=== PATIENT | female | born 1995 | race Caucasian/White ===

== ENCOUNTER 2018-10-01 01:49 | Emergency (ER) | payer SELFPAY ==
--- NOTE | 2018-10-01 02:17 | ED ---
Neurological HPI - HPI Summary HPI Summary: Patient is a 23 y/o F presenting to ED with complaints of "seizure" that was witnessed by her friend today. She states that she was sitting in room watching TV when her eyesight suddenly became "weird". Patient reports she also felt "jittery" Patient went downstairs and states that her next memory is EMS at her place of residence. No Hx of seizures is reported. Patient is on adderall, sertraline 25 mg for anxiety and ADHD since 10th grade. She denies bladder incontinence, states she has been getting sufficient sleep recently. Marijuana usage earlier today is endorsed. On triage, pain is denied, nothing is noted to aggravate/alleviate Sx. Home medications and allergies are reviewed. - History of Current Complaint Chief Complaint: EDSeizure Stated Complaint: 2208 Time Seen by Provider: 10/01/18 02:05 Hx Obtained From: Patient Onset/Duration: Started hours ago, Resolved Timing: Intermittent Episodes Lasting: Current Severity: None - pain denied Number of Seizures: 1 Pain Intensity: 0 Pain Scale Used: 0-10 Numeric - 0/10 Character: Other: - possible seizure Syncope Context: Witnessed, At Rest - watching TV Aggravating: Nothing Alleviating: Nothing Associated Signs and Symptoms: Positive: Visual Changes - vision became "weird" , Seizure. Negative: Incontinent Bladder/Bowel - Allergy/Home Medications Allergies/Adverse Reactions: Allergies Allergy/AdvReac Type Severity Reaction Status Date / Time No Known Allergies Allergy Verified 10/01/18 02:01 Home Medications: Home Medications Adderall Xr 20 mg Capsule 10/01/18 [History Confirmed 10/01/18] Sertraline HCl 10/01/18 [History] PMH/Surg Hx/FS Hx/Imm Hx Sensory History: Denies: Hx Legally Blind, Hx Deafness Opthamlomology History: Denies: Hx Legally Blind EENT History: Denies: Hx Deafness Infectious Disease History: No Infectious Disease History: Denies: Traveled Outside the [place] in Last 30 Days - Family History Known Family History: Negative: Blood Disorder - Social History Alcohol Use: Occasionally Substance Use Type: Reports: Marijuana Smoking Status (MU): Never Smoked Tobacco Review of Systems Positive: Other - felt "jittery", no lack of sleep Positive: Other - vision became "weird" Negative: incontinence Neurological: Other - possible seizure All Other Systems Reviewed And Are Negative: Yes Physical Exam - Summary Physical Exam Summary: VITAL SIGNS: Reviewed. GENERAL: Patient is a well-developed and nourished female who is lying comfortable in the stretcher. Patient is not in any acute respiratory distress. HEAD AND FACE: No signs of trauma. No ecchymosis, hematomas or skull depressions. No sinus tenderness. EYES: PERRLA, EOMI x 2, No injected conjunctiva, no nystagmus. EARS: Hearing grossly intact. Ear canals and tympanic membranes are within normal limits. MOUTH: Oropharynx within normal limits. NECK: Supple, trachea is midline, no adenopathy, no JVD, no carotid bruit, no c- spine tenderness, neck with full ROM. CHEST: Symmetric, no tenderness at palpation LUNGS: Clear to auscultation bilaterally. No wheezing or crackles. CVS: Regular rate and rhythm, S1 and S2 present, no murmurs or gallops appreciated. ABDOMEN: Soft, non-tender. No signs of distention. No rebound no guarding, and no masses palpated. Bowel sounds are normal. EXTREMITIES: FROM in all major joints, no edema, no cyanosis or clubbing. NEURO: Alert and oriented x 3. No acute neurological deficits. Speech is normal and follows commands. GCS 15 SKIN: Dry and warm Triage Information Reviewed: Yes Vital Signs On Initial Exam: Initial Vitals Temp Pulse Resp BP Pulse Ox 96.8 F 92 16 126/71 97 10/01/18 01:59 10/01/18 01:59 10/01/18 01:59 10/01/18 01:59 10/01/18 01:59 Vital Signs Reviewed: Yes Diagnostics - Vital Signs Vital Signs Temp Pulse Resp BP Pulse Ox 10/01/18 01:59 96.8 F 92 16 126/71 97 - Laboratory Result Diagrams: 10/01/18 02:38 10/01/18 02:38 Lab Statement: Any lab studies that have been ordered have been reviewed, and results considered in the medical decision making process. - CT brain ct CT Interpretation Completed By: Radiologist Summary of CT Findings: BRAIN CT IMPRESSION: No acute intracranial abnormality. THIS REPORT WAS REVIEWED BY ED PHYSICIAN. - EKG 2033 Cardiac Rate: NL - rate of 91 bpm EKG Rhythm: Sinus Rhythm Summary of EKG Findings: EKG showed sinus rhythm with rate of 91 BPM. Normal axis. Normal interval. No ischemic changes Course/Dx - Course Course Of Treatment: Patient is a 23 y/o F presenting to ED with complaints of "seizure" that was witnessed by her friend today. She states that she was sitting in room watching TV when her eyesight suddenly became "weird". Patient reports she also felt "jittery" Patient went downstairs and states that her next memory is EMS at her place of residence. No Hx of seizures is reported. Patient is on adderall, sertraline 25 mg for anxiety and ADHD since 10th grade. She denies bladder incontinence, states she has been getting sufficient sleep recently. Marijuana usage earlier today is endorsed. Physical exam is normal, GCS 15. Labs showed WBC 12.3, MCH 32, absolute neuts 10.6, potassium 3.3, glucose 132, lactic acid 1.8, beta HCG 2.48. During ED course, patient received Klor Con Er Tab 40 meq PO ED ONCE ONE. BRAIN CT IMPRESSION: No acute intracranial abnormality. EKG showed sinus rhythm with rate of 91 BPM. Normal axis. Normal interval. No ischemic changes. Patient discharged to home, advised to follow up with neurologist. Patient is agreeable with this. - Diagnoses Provider Diagnoses: Seizure Discharge - Sign-Out/Discharge Documenting (check all that apply): Patient Departure - discharge - Discharge Plan Condition: Stable Disposition: HOME Patient Education Materials: New-Onset Seizure in Adults (ED) Referrals: Wayne Bain MD [Medical Doctor] - 2 Days Additional Instructions: RETURN TO THE EMERGENCY DEPARTMENT FOR CHANGING OR WORSENING SYMPTOMS. FOLLOW UP WITH NEUROLOGIST IN 1-2 DAYS. - Attestation Statements Document Initiated by Scribe: Yes Documenting Scribe: PREMA MARCUM Provider For Whom Roe is Documenting (Include Credential): JONNY BALTAZAR MD Scribe Attestation: PREMA Miramontes, scribed for JONNY BALTAZAR MD on 10/01/18 at 0728. Status of Scribe Document: Ready
[2018-10-01 03:00] LABS: ABS Basophils 0.1 10^3/ul (0-0.2); ABS Eosinophils 0 10^3/ul (0-0.6); ABS Monocytes 0.6 10^3/ul (0-0.8); ABS Neutrophils 10.6 10^3/ul (1.5-7.7); ABS Nucleated RBC 0 10^3/ul; Eosinophil % 0.2 %; Hematocrit 41 % (35-47); Hemoglobin 13.7 g/dl (12.0-16.0); Lymphocyte % 8.2 %; Mean Corpuscular HGB Conc 34 g/dl (31-36); Mean Corpuscular Hemoglobin 32 pg (27-31); Mean Corpuscular Volume 94 fL (80-97); Mean Platelet Volume 8.2 fL (7.4-10.4); Nucleated Red Blood Cells % 0; Platelet Count 231 10^3/ul (150-450); Red Blood Count 4.33 10^6/ul (4.00-5.40); Red Cell Distribution Width 14 % (10.5-15); White Blood Count 12.3 10^3/ul (3.5-10.8)
[2018-10-01 03:16] LABS: EGFR Non-African American 90.5 (>60)
[2018-10-01] MEDS ORDERED: Potassium Chlor TAB* 20 MEQ TAB.ER PO ONE (03:27)
[2018-10-01 04:11] VITALS: BP 122/71
== END 2018-10-01 04:15 | disposition home or self-care (01) ==
LOC: ED 01:49
DX: R56.9 Unspecified convulsions (principal); F90.9 Attention-deficit hyperactivity disorder, unspecified type; F41.9 Anxiety disorder, unspecified
CPT/HCPCS: 36415; 70450; 80053; 82550; 83605; 83735; 84702; 85025; 93005; 99283; A9270-GY

== ENCOUNTER → 2019-02-19 17:52 | Emergency (ER) | payer OTHER ==
[~2019-02-19 17:52] MED LIST: Bupivacaine 0.5% W/EPI SDV* 10 ML VIAL INJ ONE; Bupivacaine 0.5% W/EPI SDV* 30 ML VIAL INJ ONE; Bupivacaine 0.5% W/EPI SDV* 30 ML VIAL ONE; Lidocaine 2% EPI 1:200000 MPF* 10 ML VIAL INJ ONE; Lidocaine 2% EPI 1:200000 MPF*10-20 ML VIAL INJ ONE; Lidocaine 2% EPI 1:200000 MPF*10-20 ML VIAL ONE; Sulfamethox/Trimethoprim DS 800/160* TAB PO ONE
--- NOTE | 2019-02-19 20:02 | ED ---
Upper Extremity Pain - HPI Summary HPI Summary: Patient complains of possibly breaking needle off into left AC while self injecting cocaine 2 days ago. Denies any other symptoms, injury or pain, fever , cough, sore throat, CP, SOB, N/V/V abdominal pain, change in urine, change in BM. Medical history is none. - History of Current Complaint Chief Complaint: EDExtremityLower Stated Complaint: LT ARM INFECTION PER PT Time Seen by Provider: 02/19/19 18:21 Hx Obtained From: Patient Mechanism Of Injury: Other Onset/Duration: Started Days Ago Severity Currently: None Pain Location: Elbow Aggravating Factor(s): Nothing Alleviating Factor(s): Nothing Associated Signs & Symptoms: Positive: Redness - Allergies/Home Medications Allergies/Adverse Reactions: Allergies Allergy/AdvReac Type Severity Reaction Status Date / Time No Known Allergies Allergy Verified 02/19/19 17:56 PMH/Surg Hx/FS Hx/Imm Hx Endocrine/Hematology History: Denies: Hx Anticoagulant Therapy Cardiovascular History: Denies: Hx Pacemaker/ICD History: Denies: Hx Dialysis Sensory History: Denies: Hx Legally Blind, Hx Deafness Opthamlomology History: Denies: Hx Legally Blind Neurological History: Denies: Hx Dementia Psychiatric History: Denies: Hx Autism Infectious Disease History: No Infectious Disease History: Denies: Traveled Outside the [place] in Last 30 Days - Family History Known Family History: Negative: Blood Disorder - Social History Alcohol Use: Occasionally Substance Use Type: Reports: Cocaine, Heroin, Marijuana, Other Substance Use Comment - Amount & Last Used: benzodiazepine Smoking Status (MU): Current Some Day Smoker Review of Systems Constitutional: Negative Eyes: Negative ENT: Negative Cardiovascular: Negative Respiratory: Negative Gastrointestinal: Negative Genitourinary: Negative Musculoskeletal: Negative Positive: Bruising Neurological: Negative Psychological: Normal All Other Systems Reviewed And Are Negative: Yes Physical Exam - Summary Physical Exam Summary: Evidence of IV drug use or left before meals with scabbing and localized erythema. No foreign body palpated. No evidence of abscess. No erythema, ecchymosis, deformity, swelling noted to left elbow. Full range of motion of left elbow. 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 Triage Information Reviewed: Yes Vital Signs On Initial Exam: Initial Vitals Temp Pulse Resp BP Pulse Ox 98.9 F 99 18 138/74 99 02/19/19 17:56 02/19/19 17:56 02/19/19 17:56 02/19/19 17:56 02/19/19 17:56 Vital Signs Reviewed: Yes Appearance: Positive: Well-Appearing Skin: Positive: Warm Head/Face: Positive: Normal Head/Face Inspection Eyes: Positive: Normal Neck: Positive: Supple Respiratory/Lung Sounds: Positive: Clear to Auscultation Cardiovascular: Positive: Normal Abdomen Description: Positive: Nontender Musculoskeletal: Positive: Normal Neurological: Positive: Normal Psychiatric: Positive: Normal AVPU Assessment: Alert - Ritesh Coma Scale Best Eye Response: 4 - Spontaneous Best Motor Response: 6 - Obeys Commands Best Verbal Response: 5 - Oriented Coma Scale Total: 15 Diagnostics - Vital Signs Vital Signs Temp Pulse Resp BP Pulse Ox 02/19/19 17:56 98.9 F 99 18 138/74 99 - Laboratory Lab Statement: Any lab studies that have been ordered have been reviewed, and results considered in the medical decision making process. Course/Dx - Course Course Of Treatment: Patient complains of possibly breaking needle off into left AC while self injecting cocaine 2 days ago. Denies any other symptoms, injury or pain, fever, cough, sore throat, CP, SOB, N/V/V abdominal pain, change in urine, change in BM. Medical history is none. Physical exam: Evidence of IV drug use or left before meals with scabbing and localized erythema. No foreign body palpated. No evidence of abscess. No erythema, ecchymosis, deformity, swelling noted to left elbow. Full range of motion of left elbow. 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 Vital signs within normal limits. X-ray positive for foreign body. Foreign body found by Dr. Nuñez on ultrasound. Foreign body removed by Dr. Perkins. Repair of laceration from foreign body removal performed by Dr. Nuñez. Patient started on Bactrim here in ED. Prescription for same. - Diagnoses Provider Diagnoses: Foreign body of upper arm, left, superficial Discharge - Sign-Out/Discharge Documenting (check all that apply): Patient Departure Patient Received Moderate/Deep Sedation with Procedure: No - Discharge Plan Condition: Stable Disposition: HOME Prescriptions: Sulfamethox/Trimethoprim DS* [Bactrim DS 800/160 TAB*] 1 tab PO BID 10 Days #20 tab Patient Education Materials: Wound Infection (ED) Referrals: No Primary Care Phys,NOPCP [Primary Care Provider] - Additional Instructions: Sutures out in 10 days. Take antibiotics as directed. Keep wound clean and dry. You may shower starting tomorrow. Return to the ED for any new or worsening symptoms. - Billing Disposition and Condition Condition: STABLE Disposition: Home
--- NOTE | 2019-02-19 20:08 | ED ---
Progress - Progress Note Progress Note: Patient was being seen by SANTA Antunez. Procedure note: US guidance removal of foreign body, used Bupivacaine and Lidocaine Localized foreign body with US, 1cm incision carried down to foreign body. Foreign body was removed. Wound closed with 2 4-0 nylon sutures. The patient was then signed back out to SANTA Antunez. Course/Dx - Course Course Of Treatment: Patient was being seen by SANTA Antunez. Procedure note : US guidance removal of foreign body, used Bupivacaine and Lidocaine. Localized foreign body with US, 1cm incision carried down to foreign body. Foreign body was removed. Wound closed with 2 4-0 nylon sutures. The patient was then signed back out to SANTA Antunez. - Diagnoses Provider Diagnoses: Foreign body of upper arm, left, superficial Discharge - Sign-Out/Discharge Documenting (check all that apply): Sign-Out Patient, Receiving Sign-Out Signing out patient TO: Martin Holden Receiving patient FROM: Martin Holden - Discharge Plan Condition: Stable Prescriptions: Sulfamethox/Trimethoprim DS* [Bactrim DS 800/160 TAB*] 1 tab PO BID 10 Days #20 tab Referrals: No Primary Care Phys,NOPCP [Primary Care Provider] - - Attestation Statements Document Initiated by Scribe: Yes Documenting Scribe: Bonifacio Davis Provider For Whom Scribe is Documenting (Include Credential): Abhishek Nuñez MD Scribe Attestation: Bonifacio Miramontes, scribed for Abhishek Nuñez MD on 02/19/19 at 2020. Status of Scribe Document: Ready Procedures - Procedure Summary Procedure Summary: Procedure note: US guidance removal of foreign body, used Bupivacaine and Lidocaine Localized foreign body with US, 1cm incision carried down to foreign body. Foreign body was removed. Wound closed with 2 4-0 nylon sutures.
[2019-02-19 20:37] VITALS: BP 114/69
== END | disposition home or self-care (01) ==
LOC: ED 17:52
DX: S50.352A Superficial foreign body of left elbow, initial encounter (principal); W45.8XXA Other foreign body or object entering through skin, initial encounter; Y92.9 Unspecified place or not applicable; F14.90 Cocaine use, unspecified, uncomplicated; Z72.0 Tobacco use
CPT/HCPCS: 10120; 99282; A9270-GY